=== PATIENT | male | born 1995 | race Caucasian/White ===

== ENCOUNTER 2021-08-20 21:18 | Emergency (ER) | payer SELFPAY | END 2021-08-21 01:22 | disposition home or self-care (01) | LOC: ER1 21:18 | DX: S86.012A Strain of left Achilles tendon, initial encounter (principal); R00.0 Tachycardia, unspecified; E11.9 Type 2 diabetes mellitus without complications; I10 Essential (primary) hypertension; W19.XXXA Unspecified fall, initial encounter | CPT/HCPCS: 73610; 90715; 99283 ==